=== PATIENT | male | born 1960 | race Caucasian/White ===

== ENCOUNTER 2021-02-06 13:12 | Emergency (ER) | payer MEDICARE, OTHER ==
[~2021-02-06 13:12] MED LIST: BACTRIM DS TAB1 EACH PO; KEFLEX CAP 500500 MG PO; LEVAQUIN750 MG PO; NEOSPORIN OINT15 GM OU; NORCO 5-325 TA1 EACH PO; ZYVOX600 MG PO
[2021-02-06] MEDS ORDERED: CEPHALEXIN500 MG PO (15:25)
== END 2021-02-06 17:11 | disposition home or self-care (01) ==
LOC: ER1 13:12
DX: S01.112A Laceration without foreign body of left eyelid and periocular area, initial encounter (principal); Z88.5 Allergy status to narcotic agent; F17.210 Nicotine dependence, cigarettes, uncomplicated; W22.8XXA Striking against or struck by other objects, initial encounter
CPT/HCPCS: 12011; 70450; 99283

== ENCOUNTER 2021-02-19 23:45 | Inpatient (IN) | payer MEDICARE, OTHER ==
[~2021-02-19] VITALS: Ht 182.9 cm; Wt 71.3 kg
[~2021-02-19 23:45] MED LIST changes: +CEPHALEXIN500 MG PO
[2021-02-20 04:40] LABS: HEMOGLOBIN 13.9 gm/dl (14.0-17.5); RED BLOOD COUNT 4.82 M/UL (4.20-5.50); WHITE BLOOD COUNT 8.8 K/UL (4.5-11.0)
[2021-02-20 05:00] LABS: BUN/CREATININE RATIO 12 (0-10)
[2021-02-21 05:09] LABS: HEMOGLOBIN 14.8 gm/dl (14.0-17.5); RED BLOOD COUNT 5.13 M/UL (4.20-5.50); WHITE BLOOD COUNT 8.1 K/UL (4.5-11.0)
--- NOTE | 2021-02-21 14:35 | NUR ---
PATIENT CONTINUES TO BE OFF FLOOR FOR LONG PERIODS OF TIME MAKING IT HARD TO PROVIDE CARE AT SCHEDULED TIMES. ADVISED PATIENT TO PLEASE REMAIN ON THE FLOOR OR TO LET US KNOW BEFORE HE LEAVES SO WE CAN DO THINGS THAT ARE NEEDED WHILE HE IS STILL ON THE FLOOR. PATIENT STATES HE UNDERSTANDS. WILL CONTINUE TO MONITOR.
[2021-02-23 21:03] LABS: HEMOGLOBIN 15.2 gm/dl (14.0-17.5); RED BLOOD COUNT 5.27 M/UL (4.20-5.50); WHITE BLOOD COUNT 9.4 K/UL (4.5-11.0)
[2021-02-24 03:15] LABS: HEMOGLOBIN 15.1 gm/dl (14.0-17.5); RED BLOOD COUNT 5.29 M/UL (4.20-5.50); WHITE BLOOD COUNT 7.5 K/UL (4.5-11.0)
[2021-02-25] MEDS ORDERED: ALDACTONE 25MG25 MG PO (09:47)
[2021-02-25] MEDS ORDERED: LISINOPRIL5 MG PO (09:47)
[2021-02-25] MEDS ORDERED: FUROSEMIDE40 MG PO (09:47)
[2021-02-25] MEDS ORDERED: CLOPIDOGREL75 MG PO (09:47)
[2021-02-25] MEDS ORDERED: CARVEDILOL3.125 MG PO (09:47)
[2021-02-25] MEDS ORDERED: PROTONIX 40 MG40 M1 PO (09:47)
[2021-02-25] MEDS ORDERED: ASPIRIN EC81 MG PO (09:47)
== END 2021-02-25 12:37 | disposition home or self-care (01) | DRG 246 ==
LOC: ER1 23:45 → CDU 02-20 05:35 → PROG CARE 02-20 05:35 → CDU 02-20 05:35 → M/S 02-20 16:05 → PROG CARE 02-23 12:42
PROVIDERS: Internal Medicine; Internal Medicine Interventional Cardiology; Physician Assistant; Student in an Organized Health Care Education/Training Program; ADMIT Internal Medicine
PROC: 4A023N7 Measurement of Cardiac Sampling and Pressure, Left Heart, Percutaneous Approach (ICD-10-PCS; principal; 2021-02-23)
PROC: 027034Z Dilation of Coronary Artery, One Artery with Drug-eluting Intraluminal Device, Percutaneous Approach (ICD-10-PCS; principal; 2021-02-23)
PROC: B211YZZ Fluoroscopy of Multiple Coronary Arteries using Other Contrast (ICD-10-PCS; principal; 2021-02-23)
DX: I13.0 Hypertensive heart and chronic kidney disease with heart failure and stage 1 through stage 4 chronic kidney disease, or unspecified chronic kidney disease (principal); I50.23 Acute on chronic systolic (congestive) heart failure; L97.929 Non-pressure chronic ulcer of unspecified part of left lower leg with unspecified severity; L97.919 Non-pressure chronic ulcer of unspecified part of right lower leg with unspecified severity; N17.9 Acute kidney failure, unspecified; Z20.822 Contact with and (suspected) exposure to COVID-19; N18.30 Chronic kidney disease, stage 3 unspecified; I42.0 Dilated cardiomyopathy; I25.10 Atherosclerotic heart disease of native coronary artery without angina pectoris; F17.210 Nicotine dependence, cigarettes, uncomplicated; I08.1 Rheumatic disorders of both mitral and tricuspid valves; I27.20 Pulmonary hypertension, unspecified; F15.10 Other stimulant abuse, uncomplicated; J44.9 Chronic obstructive pulmonary disease, unspecified; I25.110 Atherosclerotic heart disease of native coronary artery with unstable angina pectoris; R53.83 Other fatigue; F12.10 Cannabis abuse, uncomplicated; Z59.0 Homelessness; Z91.19 Patient's noncompliance with other medical treatment and regimen; Z82.49 Family history of ischemic heart disease and other diseases of the circulatory system; Z88.5 Allergy status to narcotic agent
CPT/HCPCS: ECHO; 36415; 36600; 71045; 80048; 80053; 81001; 82550; 82553; 83605; 83690; 83735; 83874; 83880; 84484; 85025; 85027; 85347; 85652; 86140; 93005; 93306; 94760; 96374; 97161; 99152; 99153; 99284; C1769; C1874; C1887; C9600; J1644; J1650; J1940; J2250; J3010; J3475; J7040; Q9965; Q9967; U0002

== ENCOUNTER 2022-03-22 16:28 | Emergency (ER) | payer MEDICARE, OTHER ==
[~2022-03-22 16:28] MED LIST changes: +ALDACTONE 25MG25 MG PO; +ASPIRIN EC81 MG PO; +ASPIRIN81 MG PO; +CARVEDILOL3.125 MG PO; +CLOPIDOGREL75 MG PO; +FUROSEMIDE40 MG PO; +K-TAB ER20 MEQ PO; +LASIX40 MG PO; +LISINOPRIL5 MG PO; +PLAVIX 75 MG TA75 MG PO; +PROTONIX 40 MG40 M1 PO; +PROTONIX40 MG PO
[2022-03-22 19:08] LABS: HEMOGLOBIN 11.7 gm/dl (14.0-17.5); RED BLOOD COUNT 4.36 M/UL (4.20-5.50); WHITE BLOOD COUNT 11.1 K/UL (4.5-11.0)
[2022-03-22 19:34] LABS: BUN/CREATININE RATIO 12 (0-10)
[2022-03-23] MEDS ORDERED: DOXYCYCLINE HY100 MG PO (00:30)
== END 2022-03-23 01:07 | disposition home or self-care (01) ==
LOC: ER1 16:28
PROVIDERS: Emergency Medicine
DX: S41.102A Unspecified open wound of left upper arm, initial encounter (principal); S41.101A Unspecified open wound of right upper arm, initial encounter; J18.9 Pneumonia, unspecified organism; F15.10 Other stimulant abuse, uncomplicated; I11.0 Hypertensive heart disease with heart failure; I50.9 Heart failure, unspecified; Z95.5 Presence of coronary angioplasty implant and graft; X58.XXXA Exposure to other specified factors, initial encounter
CPT/HCPCS: 71045; 80053; 82550; 82553; 83880; 84484; 85025; 93005; 99283

== ENCOUNTER 2022-03-31 16:09 | Inpatient (IN) | payer MEDICARE, OTHER ==
[~2022-03-31] VITALS: Ht 182.9 cm; Wt 70.3 kg
[~2022-03-31 16:09] MED LIST changes: +DOXYCYCLINE HY100 MG PO
[2022-03-31 16:51] LABS: HEMOGLOBIN 12.4 gm/dl (14.0-17.5); RED BLOOD COUNT 4.64 M/UL (4.20-5.50); WHITE BLOOD COUNT 8.8 K/UL (4.5-11.0)
[2022-04-01 04:47] LABS: HEMOGLOBIN 13.1 gm/dl (14.0-17.5); RED BLOOD COUNT 4.84 M/UL (4.20-5.50)
[2022-04-01 04:53] LABS: WHITE BLOOD COUNT 6.5 K/UL (4.5-11.0)
[2022-04-01 05:00] LABS: BUN/CREATININE RATIO 16 (0-10)
[2022-04-01] MEDS ORDERED: ASPIRIN EC81 MG PO (10:50)
[2022-04-01] MEDS ORDERED: COREG3.125 MG PO (10:52)
[2022-04-01] MEDS ORDERED: CLOPIDOGREL75 MG PO (10:56)
[2022-04-01] MEDS ORDERED: FUROSEMIDE40 MG PO (10:57)
[2022-04-01] MEDS ORDERED: LISINOPRIL5 MG PO (10:58)
[2022-04-01] MEDS ORDERED: PROTONIX 40 MG40 M1 PO (10:58)
[2022-04-01] MEDS ORDERED: POTASSIUM CHLO20 ME2 PO (10:59)
[2022-04-02 04:20] LABS: HEMOGLOBIN 13.7 gm/dl (14.0-17.5); RED BLOOD COUNT 5.01 M/UL (4.20-5.50)
[2022-04-02 04:21] LABS: WHITE BLOOD COUNT 15.2 K/UL (4.5-11.0)
[2022-04-02 04:43] LABS: BUN/CREATININE RATIO 24 (0-10)
[2022-04-02] MEDS ORDERED: CLOPIDOGREL75 MG PO (17:09)
[2022-04-02] MEDS ORDERED: ASPIRIN EC81 MG PO (17:09)
[2022-04-02] MEDS ORDERED: LISINOPRIL5 MG PO (17:09)
[2022-04-02] MEDS ORDERED: FUROSEMIDE40 MG PO (17:09)
[2022-04-02] MEDS ORDERED: ATORVASTATIN CA20 MG PO (17:09)
[2022-04-02] MEDS ORDERED: COREG3.125 MG PO (17:09)
[2022-04-03 06:01] LABS: HEMOGLOBIN 14.2 gm/dl (14.0-17.5); RED BLOOD COUNT 5.26 M/UL (4.20-5.50)
[2022-04-03 06:07] LABS: BUN/CREATININE RATIO 31 (0-10)
[2022-04-03 06:12] LABS: WHITE BLOOD COUNT 10.2 K/UL (4.5-11.0)
[2022-04-03] MEDS ORDERED: CLOPIDOGREL75 MG PO (12:42)
[2022-04-03] MEDS ORDERED: NICOTINE PATCH1 EAC2 TOP (12:42)
[2022-04-03] MEDS ORDERED: FUROSEMIDE40 MG PO (12:42)
[2022-04-03] MEDS ORDERED: LISINOPRIL10 MG PO (12:42)
[2022-04-03] MEDS ORDERED: LIPITOR40 MG PO (12:42)
[2022-04-03] MEDS ORDERED: COREG6.25 MG PO (12:42)
[2022-04-05 16:10] LABS: ORGANISM ID Not indicated. (.); SPECIMEN SOURCE Urine (.); STREPTOCOCCUS PNEUMONIAE AG Negative (Negative)
== END 2022-04-03 15:28 | disposition home or self-care (01) | DRG 291 ==
LOC: ER1 16:09 → MED SURG 4 20:49 → CDU 20:49 → CCU 20:49 → MED SURG 4 04-02 16:39
PROVIDERS: Internal Medicine; Preventive Medicine Occupational Medicine; ADMIT Internal Medicine
PROC: B24BZZZ Ultrasonography of Heart with Aorta (ICD-10-PCS; principal; 2022-04-03)
DX: I13.0 Hypertensive heart and chronic kidney disease with heart failure and stage 1 through stage 4 chronic kidney disease, or unspecified chronic kidney disease (principal); I50.23 Acute on chronic systolic (congestive) heart failure; N17.9 Acute kidney failure, unspecified; J98.11 Atelectasis; Z20.822 Contact with and (suspected) exposure to COVID-19; E78.5 Hyperlipidemia, unspecified; I25.5 Ischemic cardiomyopathy; N18.30 Chronic kidney disease, stage 3 unspecified; I25.10 Atherosclerotic heart disease of native coronary artery without angina pectoris; F15.10 Other stimulant abuse, uncomplicated; J44.9 Chronic obstructive pulmonary disease, unspecified; Z91.14 Patient's other noncompliance with medication regimen; Z95.1 Presence of aortocoronary bypass graft; Z95.5 Presence of coronary angioplasty implant and graft; Z82.3 Family history of stroke; Z59.00 Homelessness unspecified; Z88.5 Allergy status to narcotic agent; Z79.899 Other long term (current) drug therapy; Z87.891 Personal history of nicotine dependence
CPT/HCPCS: 0240U; 36415; 36600; 71045; 80048; 80053; 80061; 80307; 81001; 82550; 82553; 82803; 83036; 83690; 83735; 83880; 84100; 84439; 84443; 84484; 85025; 85027; 85652; 86140; 87040; 87070; 87086; 87205; 87278; 87899; 93005; 93308; 94640; 94664; 94760; 96374; 96375; 97161; 99285; G0480; J0696; J1650; J1940; J2930